=== PATIENT | female | born 1995 | race African-American/Black ===

== ENCOUNTER 2018-08-02 09:48 | Emergency (ER) | payer OTHER ==
[~2018-08-02] VITALS: Ht 170.2 cm; Wt 158.8 kg
[~2018-08-02 09:48] MED LIST: ACETAMINOPHEN-1 EAC1 PO; IBUPROFEN 800800 MG PO; ROBAXIN500 MG PO
[2018-08-02] MEDS ORDERED: ACETAMINOPHEN-1 EAC1 PO (10:04)
[2018-08-02] MEDS ORDERED: AMOXICILLIN 50500 MG PO (10:04)
[2018-08-02 10:14] VITALS: BP 146/86
== END 2018-08-02 10:14 | disposition home or self-care (01) ==
LOC: M.ERS 09:48
DX: J02.0 Streptococcal pharyngitis (principal)

== ENCOUNTER 2019-02-24 09:07 | Emergency (ER) | payer OTHER ==
[~2019-02-24] VITALS: Ht 170.2 cm; Wt 163.3 kg
[~2019-02-24 09:07] MED LIST changes: +AMOXICILLIN 50500 MG PO
[2019-02-24] MEDS ORDERED: AMOXICILLIN 50500 MG PO (09:54)
[2019-02-24 09:55] VITALS: BP 150/84
== END 2019-02-24 09:55 | disposition home or self-care (01) ==
LOC: M.ERS 09:07
DX: J02.0 Streptococcal pharyngitis (principal)

== ENCOUNTER 2019-02-26 12:43 | Emergency (ER) | payer OTHER ==
[~2019-02-26] VITALS: Ht 170.2 cm; Wt 163.3 kg
[2019-02-26 13:48] LABS: ABSOLUTE BASOPHILS 0.1 thou/uL (0.0-0.2); ABSOLUTE EOSINOPHILS 0.3 thou/uL (0.0-0.7); ABSOLUTE LYMPHOCYTES 1.5 thou/uL (0.8-5.3); ABSOLUTE MONOCYTES 0.3 thou/uL (0.0-1.2); ABSOLUTE NEUTROPHILS 2.5 thou/uL (1.6-8.1); BASOPHILS 1.2 %; EOSINOPHILS 5.4 %; HEMATOCRIT 38.6 % (37.0-47.0); HEMOGLOBIN 12.5 gm/dL (12.0-15.0); LYMPHOCYTES 31.8 %; MCH 26.5 pg (26.0-34.0); MCHC 32.3 g/dL (28.0-37.0); MCV 82.2 fL (80.0-100.0); MPV 6.5 fl. (7.2-11.1); NUCLEATED RBCS 0 /100WBC; PLATELET COUNT* 389 thou/uL (150-400); POLYS 54.6 %; RDW-CV 15.7 % (10.5-14.5); WBC 4.6 thou/uL (4.0-11.0)
[2019-02-26 13:52] LABS: CALCIUM 8.9 mg/dL (8.5-10.1); CREATININE 0.9 mg/dL (0.6-1.3); POTASSIUM 4.1 mmol/L (3.5-5.1)
[2019-02-26 13:56] LABS: ALBUMIN 3.4 g/dL (3.4-5.0); TOTAL BILIRUBIN 0.3 mg/dL (<0.1-1.0); TOTAL PROTEIN 7.8 g/dL (6.4-8.2)
[2019-02-26 14:05] LABS: INFLUENZA A ANTIGEN Negative (Negative); INFLUENZA B ANTIGEN Negative (Negative)
[2019-02-26] MEDS ORDERED: VENTOLIN HFA 1818 GM INH (14:11)
[2019-02-26 14:20] VITALS: BP 132/79
== END 2019-02-26 14:20 | disposition home or self-care (01) ==
LOC: M.ERS 12:43
PROVIDERS: Nurse Practitioner Family
DX: J30.9 Allergic rhinitis, unspecified (principal); R06.02 Shortness of breath

== ENCOUNTER 2021-03-16 14:22 | Emergency (ER) | payer OTHER ==
[~2021-03-16] VITALS: Ht 165.1 cm; Wt 145.2 kg
[~2021-03-16 14:22] MED LIST changes: +VENTOLIN HFA 1818 GM INH
[2021-03-16 15:13] VITALS: BP 138/87
== END 2021-03-16 15:14 | disposition home or self-care (01) ==
LOC: M.ERS 14:22
DX: J02.9 Acute pharyngitis, unspecified (principal); Z20.822 Contact with and (suspected) exposure to COVID-19; Z86.16 Personal history of COVID-19; Z91.09 Other allergy status, other than to drugs and biological substances